=== PATIENT | female | born 1975 | race Caucasian/White ===

== ENCOUNTER → 2018-07-16 | Outpatient (CLI) | payer OTHER ==
[~2018-07-16] MED LIST: MULT1CAP59 PO
--- NOTE | 2018-07-16 09:22 | RADIOLOGY IMAGING REPORT ---
FACILITY: [facility] PATIENT NAME: Archana Ram : 1975 MR: [id number] V: [id number] EXAM DATE: ORDERING PHYSICIAN: KERRY REYES TECHNOLOGIST: Location: [facility] Patient: Archana Ram : 1975 Visit/Account:[id number] Date of Sevice: 07/16/2018 EXAMINATION: Abdominal ultrasound complete HISTORY: Left upper quadrant right upper quadrant pain, elevated liver enzymes COMPARISON: Gallbladder ultrasound November 23, 2012 FINDINGS: Gallbladder: No stones, wall thickening, pericholecystic fluid or sonographic Montoya sign. Liver: Negative. Common duct: Normal measuring 4.6 mm. Pancreas: Negative. Spleen: Normal in size and echogenicity measuring 9.2 cm in length. Kidneys: Normal in size and echogenicity, the right measures 11.2 cm in length, and the left 11.8 cm . No hydronephrosis. There appears to be mild cortical thinning of the right kidney Upper abdominal aorta and IVC: Negative. Ascites: None. IMPRESSION: Unremarkable abdomen ultrasound other than incidental note of mild cortical thinning of the right kid du Report Dictated By: Johanny Foy MD at 07/16/2018 9:15 AM Report E-Signed By: Johanny Foy MD at 07/16/2018 9:19 AM WSN:[id number]
--- NOTE | 2018-07-16 11:39 | RADIOLOGY IMAGING REPORT ---
[facility] PATIENT NAME: AMBIKA RAMOS : [id number] MR: [id number] V: [id number] EXAM DATE: ORDERING PHYSICIAN: KERRY REYES TECHNOLOGIST: Lori Banks PROCEDURE:BILATERAL DIGITAL SCREENING MAMMOGRAM WITH CAD ASSISTED INTERPRETATION & 3D TOMOSYNTHESIS COMPARISON:Prior mammograms 06/20/16, 06/13/14, 11/15/12, 10/24/11. INDICATIONS:SCREENING FINDINGS: Moderately dense fibroglandular tissue is seen throughout the breasts. The parenchymal pattern has remained stable allowing for difference in mammographic technique & patient positioning. There is no evidence of malignant appearing mass, malignant appearing calcifications or other secondary sign of malignancy in either breast. DIAGNOSTIC CATEGORY 1--NEGATIVE. RECOMMENDATIONS: ROUTINE MAMMOGRAM AND CLINICAL EVALUATION. IMPRESSION: BIRADS 1: Negative. No significant abnormality is seen. Dictated by: Johanny Foy M.D. on 07/16/2018 at 10:23 Transcribed by: PHUONG on 07/16/2018 at 10:43 Approved by: Johanny Foy M.D. on 07/16/2018 at 11:39 [facility]
== END ==
LOC: MAMO 03:26
PROVIDERS: ATTEND Nurse Practitioner Family
DX: Z12.31 Encounter for screening mammogram for malignant neoplasm of breast (principal); R74.8 Abnormal levels of other serum enzymes; R10.812 Left upper quadrant abdominal tenderness; R10.813 Right lower quadrant abdominal tenderness; R10.11 Right upper quadrant pain
CPT/HCPCS: 76700; 77063; 77067